=== PATIENT | female | born 1995 | race Caucasian/White ===

== ENCOUNTER 2016-10-25 13:38 | Emergency (ER) | payer MEDICAID ==
[~2016-10-25] VITALS: Ht 165.1 cm; Wt 57.6 kg
[2016-10-25 16:03] VITALS: BP 118/71
== END 2016-10-25 16:16 | disposition home or self-care (01) ==
LOC: ED 14:43
DX: O26.891 Other specified pregnancy related conditions, first trimester (principal); Z3A.01 Less than 8 weeks gestation of pregnancy; R10.2 Pelvic and perineal pain
CPT/HCPCS: 36415; 76801; 81001; 84702; 85025; 86901; 99285

== ENCOUNTER 2017-06-14 14:09 | Inpatient (IN) | payer MEDICAID ==
[~2017-06-14] VITALS: Ht 165.1 cm; Wt 59.5 kg
[2017-06-14] MEDS ORDERED: CALCIUM CARBONATE 500 MG TAB.CHEW PO PRN (15:00)
[2017-06-14] MEDS: LACTATED RINGERS 1,000 ML IV SCH (15:00)
[2017-06-14] MEDS ORDERED: FENTANYL PF 100 MCG/2ML IV PRN (15:00)
[2017-06-14] MEDS ORDERED: FENTANYL PF 100 MCG/2ML IVPush PRN (15:00)
[2017-06-14] MEDS ORDERED: OXYTOCIN 30U/ 0.9% NaCL 500ML 500 ML IV ONE (15:00)
[2017-06-14] MEDS ORDERED: ONDANSETRON 2MG/ML, 2ML IVPush PRN (15:00)
[2017-06-14] MEDS: D5%-LACTATED RINGERS 1,000 ML IV SCH (15:00)
[2017-06-14 15:39] LABS: BASOPHILS # (AUTO) 0.07 x10^3/uL (0-0.1); BASOPHILS % (AUTO) 1 % (0-1); EOSINOPHILS # (AUTO) 0.09 x10^3/uL (0-0.4); EOSINOPHILS % (AUTO) 1 % (1-7); LYMPHOCYTES # (AUTO) 1.51 x10^3/uL (1-3.4); LYMPHOCYTES % (AUTO) 13 % (22-44); MD NO; MEAN CORPUSCULAR HEMOGLOBIN 28.4 pg (27.0-34.8); MEAN CORPUSCULAR HGB CONC 33.3 g/dL (32.4-35.8); MEAN CORPUSCULAR VOLUME 85.2 fL (80-100); MEAN PLATELET VOLUME 7.2 fL (7.4-10.4); MONOCYTES # (AUTO) 0.69 x10^3/uL (0.2-0.8); MONOCYTES % (AUTO) 6 % (2-9); NEUTROPHILS # (AUTO) 9.79 x10^3/uL (1.8-6.8); NEUTROPHILS % (AUTO) 81 % (42-75); PLATELET COUNT 241 x10^3/uL (130-400); RED BLOOD COUNT 3.93 x10^6/uL (3.82-5.3); RED CELL DISTRIBUTION WIDTH 13.8 % (9.6-15.2)
[2017-06-14] MEDS ORDERED: LIDOCAINE 1%, 20ML ONE (17:07)
[2017-06-14] MEDS ORDERED: MISOPROSTOL 200 MCG TABLET ONE (17:07)
[2017-06-14] MEDS ORDERED: NEWBORN KIT ONE (17:07)
[2017-06-14] MEDS ORDERED: OXYTOCIN 30U/ 0.9% NaCL 500ML 500 ML ONE (17:07)
[2017-06-14] MEDS ORDERED: OXYTOCIN 30U/ 0.9% NaCL 500ML 500 ML IV PRN (19:50)
[2017-06-14] MEDS ORDERED: LACTATED RINGERS 1,000 ML IVBOLUS PRN (20:00)
[2017-06-15] MEDS: LACTATED RINGERS 1,000 ML IV SCH ×2 (00:25→11:29)
[2017-06-15] MEDS: D5%-LACTATED RINGERS 1,000 ML IV SCH ×3 (02:24→09:33)
[2017-06-15] MEDS ORDERED: FENTANYL PF 100 MCG/2ML ONE ×2 (04:53→07:12)
[2017-06-15] MEDS ORDERED: ONDANSETRON 2MG/ML, 2ML ONE (06:34)
[2017-06-15] MEDS ORDERED: FENTANYL/BUPIV./NS/PF 250 ML EPIDCONT ONE (07:12)
[2017-06-15] MEDS ORDERED: BUPIVACAINE 0.25% ONE (07:12)
[2017-06-15] MEDS ORDERED: LACTATED RINGERS 1,000 ML IV SCH (07:38)
[2017-06-15] MEDS ORDERED: FENTANYL/BUPIV./NS/PF 250 ML EPIDCONT SCH (07:38)
[2017-06-15] MEDS ORDERED: EPINEPHRINE 1 MG/ML, 1ML ONE (07:52)
[2017-06-15] MEDS ORDERED: EPHEDRINE 50 MG/ML, 1ML ONE ×2 (07:54→09:26)
[2017-06-15] MEDS: EPHEDRINE 50 MG/ML, 1ML IVPush PRN ×2 (08:00→09:33)
[2017-06-15] MEDS ORDERED: LACTATED RINGERS 1,000 ML IVBOLUS PRN (08:00)
[2017-06-15] MEDS: CEFAZOLIN PMX 2GM/50ML 50 ML IV SCH ×2 (08:09→13:53)
[2017-06-15 08:35] VITALS: BP 103/54
[2017-06-15] MEDS ORDERED: OXYcodone/APAP 5/325MG TABLET PO PRN (18:00)
[2017-06-15] MEDS ORDERED: ACETAMINOPHEN 325 MG TABLET PO PRN (18:00)
[2017-06-15] MEDS ORDERED: MISOPROSTOL 200 MCG TABLET PO PRN (18:00)
[2017-06-15] MEDS ORDERED: OXYcodone IR 5MG TABLET PO PRN (18:00)
[2017-06-15] MEDS ORDERED: OXYTOCIN 30U/ 0.9% NaCL 500ML 500 ML ONE (18:47)
[2017-06-15] MEDS: OXYTOCIN 30U/ 0.9% NaCL 500ML 500 ML IV SCH (18:52)
[2017-06-15 21:00] VITALS: BP 107/68
[2017-06-15] MEDS: IBUPROFEN 600 MG TABLET PO PRN (23:43)
[2017-06-16 00:03] VITALS: BP 114/63
[2017-06-16 02:24] LABS: BASOPHILS # (AUTO) 0.06 x10^3/uL (0-0.1); BASOPHILS % (AUTO) 0 % (0-1); EOSINOPHILS # (AUTO) 0.03 x10^3/uL (0-0.4); EOSINOPHILS % (AUTO) 0 % (1-7); LYMPHOCYTES # (AUTO) 1.75 x10^3/uL (1-3.4); LYMPHOCYTES % (AUTO) 10 % (22-44); MD NO; MEAN CORPUSCULAR HEMOGLOBIN 28.4 pg (27.0-34.8); MEAN CORPUSCULAR HGB CONC 33.6 g/dL (32.4-35.8); MEAN CORPUSCULAR VOLUME 84.7 fL (80-100); MEAN PLATELET VOLUME 7.4 fL (7.4-10.4); MONOCYTES % (AUTO) 5 % (2-9); NEUTROPHILS # (AUTO) 14.22 x10^3/uL (1.8-6.8); NEUTROPHILS % (AUTO) 84 % (42-75); PLATELET COUNT 199 x10^3/uL (130-400); RED BLOOD COUNT 3.25 x10^6/uL (3.82-5.3); RED CELL DISTRIBUTION WIDTH 13.8 % (9.6-15.2)
[2017-06-16] MEDS: OXYTOCIN 30U/ 0.9% NaCL 500ML 500 ML IV SCH (03:36)
[2017-06-16 03:57] VITALS: BP 100/61
[2017-06-16 07:31] VITALS: BP 90/54
[2017-06-16] MEDS: PRENATAL VIT/IRON/FA 1 EACH TABLET PO SCH (08:57)
[2017-06-16 12:30] VITALS: BP 99/63
[2017-06-16] MEDS: DOCUSATE 100 MG CAPSULE PO PRN ×2 (14:29→20:35)
[2017-06-16 16:00] VITALS: BP 98/63
[2017-06-16 19:17] VITALS: BP 101/67
[2017-06-16] MEDS ORDERED: DIPH,PERTUSS(ACELL),TET VAC/PF NC IM-VACC ONE ×2 (19:40→20:00)
[2017-06-16] MEDS: IBUPROFEN 600 MG TABLET PO PRN (20:35)
[2017-06-17 07:30] VITALS: BP 111/60
[2017-06-17] MEDS: DOCUSATE 100 MG CAPSULE PO PRN (08:03)
[2017-06-17] MEDS: PRENATAL VIT/IRON/FA 1 EACH TABLET PO SCH (08:04)
[2017-06-17] MEDS: IBUPROFEN 600 MG TABLET PO PRN (11:53)
[2017-06-17] MEDS ORDERED: IBUP-1222 PO (11:57)
== END 2017-06-17 12:55 | disposition home or self-care (01) | DRG 775 ==
LOC: LDOP 14:09 → LDIP 15:04 → 2NW 06-15 20:39
PROVIDERS: ADMIT Obstetrics & Gynecology; ATTEND Obstetrics & Gynecology
PROC: 10E0XZZ Delivery of Products of Conception, External Approach (ICD-10-PCS; principal; 2017-06-15)
PROC: 0KQM0ZZ Repair Perineum Muscle, Open Approach (ICD-10-PCS; 2017-06-15)
PROC: 0W8NXZZ Division of Female Perineum, External Approach (ICD-10-PCS; 2017-06-15)
DX: O70.1 Second degree perineal laceration during delivery (principal); Z37.0 Single live birth; Z3A.38 38 weeks gestation of pregnancy
CPT/HCPCS: 36415; 85025; 86850; 86900; 89060; 90715; J0690; J3010; J2590; J7120; J7121; Q0114